=== PATIENT | male | born 1990 | race Caucasian/White ===

== ENCOUNTER 2017-04-25 14:02 | Emergency (ER) | payer SELFPAY ==
[2017-04-25 16:07] LABS: BASOPHIL 0.4 % (0-2); EOSINOPHIL 5.1 % (0-5); HCT 45.6 % (42.0-52.0); HGB 15.9 g/dl (13.2-18.0); LYMPHOCYTE 35.2 % (15-48); MCH 28.8 pg (25.0-31.0); MCHC 34.9 g/dL (32.0-36.0); MCV 82.5 fL (78.0-100.0); MONOCYTE 5.3 % (0-12); MPV 9.2 fL (6.0-9.5); PLT 321 K/uL (150-400); RBC 5.53 M/uL (4.70-6.00); RDW 13.7 % (11.5-14.0); WBC 10.7 K/uL (4.0-10.5)
[2017-04-25 16:23] LABS: ALBUMIN 4.4 g/dL (3.5-5.0); BILIRUBIN - TOTAL 0.4 mg/dL (0.1-1.0); CREATININE 0.9 mg/dL (0.7-1.2); POTASSIUM 4.3 mmol/L (3.5-5.1); TOTAL PROTEIN 7.4 g/dL (6.4-8.3)
[2017-04-25 16:34] LABS: FT4 (FREE T4) 1.36 ng/dL (0.93-1.70); TSH (THYROID STIM HORMONE) 1.59 uIU/mL (0.270-4.200)
== END 2017-04-25 17:41 | disposition home or self-care (01) ==
LOC: FER 14:02
PROVIDERS: Nurse Practitioner
DX: G44.209 Tension-type headache, unspecified, not intractable (principal); F17.210 Nicotine dependence, cigarettes, uncomplicated
CPT/HCPCS: 36415; 70450; 80053; 84439; 84443; 85025; J1885